=== PATIENT | female | born 1965 | race Caucasian/White ===

== ENCOUNTER 2021-04-10 16:18 | Emergency (ER) | payer OTHER ==
[2021-04-10 16:51] VITALS: BP 109/81
--- NOTE | 2021-04-10 17:43 | XRAY Report ---
PROCEDURE: Knee 4 View LT INDICATIONS: fall, knee pain TECHNIQUE: 4 views of the left knee(s) were acquired. COMPARISON: None. FINDINGS: Bones: No acute fractures or dislocations. No suspicious bony lesions. Tricompartmental degenerativ e changes of the left knee most pronounced in the patellofemoral compartment. Enthesophyte noted over the superior pole of the patella. Soft tissues: No joint effusion. No suspicious soft tissue calcifications. IMPRESSION: Left knee without acute fracture or dislocation. Tricompartmental degenerative changes of the left knee. If there is persistent clinical concern for a radiographically occult fracture, recommend immobilizat ion and repeat imaging in 10 to 14 days. Reviewed by: Shailesh Daugherty MD on 04/10/2021 5:42 PM PDT Approved by: Shailesh Daugherty MD on 04/10/2021 5:42 PM PDT Station ID: [id number]
[2021-04-10] MEDS ORDERED: IBUPROFEN 800 MG TABLET PO STA (18:02)
--- NOTE | 2021-04-10 18:03 | ED Physician Documentation ---
PD HPI LOWER EXT INJURY - Stated complaint Stated Complaint: LT LEG INJ - Chief complaint Chief Complaint: Trauma Ext - History obtained from History obtained from: Patient, Family - History of Present Illness PD HPI LOW EXT INJURY LOCATION: Left, Knee Type of injury: Fall, Twist Where injury occurred: Home Timing - onset: How many hours ago (2) Timing - duration: Hours (2) Pain level max: 6 Pain level now: 5 Improved by: Rest Worsened by: Moving, Palpating Associated symptoms: Swelling. No: Weakness, Numbness, Tingling Contributing factors: No: Anticoagulated, Prior ortho surgery, Prosthetic joint - Additional information Additional information: Patient is a 55-year-old female who presents to the emergency department after walking down stairs when she slipped and her left knee bent backwards behind her. Now has pain with walking. Worse with movement, better with rest. She states that she has injured this knee previously. Denies head, neck, back pain. Patient is here visiting. Review of Systems Constitutional: denies: Fever, Chills GI: denies: Vomiting Skin: denies: Rash Musculoskeletal: denies: Neck pain, Back pain Neurologic: denies: Headache, Head injury, LOC PD PAST MEDICAL HISTORY - Past Medical History Past Medical History: Yes Cardiovascular: Hypertension Respiratory: None Neuro: None Endocrine/Autoimmune: None GI: GERD [employer]: None : None HEENT: Chronic vision loss Psych: None Musculoskeletal: None Derm: None - Past Surgical History Past Surgical History: No - Allergies Allergies/Adverse Reactions: Allergies Allergy/AdvReac Type Severity Reaction Status Date / Time acetaminophen [From Percocet] Allergy Itching Verified 04/10/21 16:51 oxycodone [From Percocet] Allergy Itching Verified 04/10/21 16:51 - Social History Does the pt smoke?: No Smoking Status: Never smoker Does the pt drink ETOH?: No Does the pt have substance abuse?: No - Immunizations Immunizations are current?: Yes - POLST Patient has POLST: No PD ED PE NORMAL - Vitals Vital signs reviewed: Yes - General General: Alert and oriented X 3, No acute distress - HEENT HEENT: Moist mucous membranes - Neck Neck: Supple, no meningeal sign - Cardiac Cardiac: RRR - Respiratory Respiratory: No respiratory distress, Clear bilaterally - Derm Derm: Warm and dry - Extremities Extremities: Other (Mild prepatellar swelling of the left knee. Mild joint effusion. Limited range of motion secondary to pain. There are some tenderness along the medial joint line. ACL, MCL, PCL, LCL are intact. NVI) - Neuro Neuro: Alert and oriented X 3 - Psych Psych: Normal mood, Normal affect Results - Vitals Vitals: Vital Signs - 24 hr 04/10/21 16:48 Temperature 37.3 C Heart Rate 101 H Respiratory 16 Rate Blood Pressure 109/81 H O2 Saturation 95 Oxygen O2 Source Room air - Rads (name of study) L knee xray Radiology: Final report received, EMP read contemporaneously, See rad report (No acute abnormality) PD MEDICAL DECISION MAKING - ED course Complexity details: reviewed results, re-evaluated patient, considered differential, d/w patient, d/w family ED course: No acute findings on x-ray. Likely knee sprain. Possible meniscus injury? Placed in a articulating knee brace. Declines crutches. Declines pain medication for home. Neurovascularly intact. She will follow up with an orthopedist in 1 week when she returns home. Patient and family counseled regarding signs and symptoms for which I believe and urgent re-evaluation would be necessary. Patient with good understanding of and agreement to plan and is comfortable going home at this time This document was made in part using voice recognition software. While efforts are made to proofread this document, sound alike and grammatical errors may occur. Departure - Departure Disposition: 01 Home, Self Care Clinical Impression: Left knee sprain Qualifiers: Encounter type: initial encounter Involved ligament of knee: medial collateral ligament Qualified Code(s): S83.412A - Sprain of medial collateral ligament of left knee, initial encounter Condition: Good Instructions: ED Sprain Knee Follow-Up: Your,doctor in 1 week [Other] Comments: Wear the articulating knee brace to help add support to the knee while this heals. You may bear weight as tolerated. Follow-up with an orthopedist when you return home to [place] for repeat evaluation when the swelling has decreased. Return if you worsen. FINDINGS: Bones: No acute fractures or dislocations. No suspicious bony lesions. Tricompartmental degenerative changes of the left knee most pronounced in the patellofemoral compartment. Enthesophyte noted over the superior pole of the patella. Soft tissues: No joint effusion. No suspicious soft tissue calcifications. IMPRESSION: Left knee without acute fracture or dislocation. Tricompartmental degenerative changes of the left knee. Discharge Date/Time: 04/10/21 19:10
--- NOTE | 2021-04-11 13:37 | ED Physician Documentation ---
ED Addendum - Addendum Addendum: 04/11/21 13:34 Patient returns today requesting a walker and pain medication. We will provide this for her. Patient will follow up with her doctor for further care. This document was made in part using voice recognition software. While efforts are made to proofread this document, sound alike and grammatical errors may occur. Departure - Departure Disposition: 01 Home, Self Care Clinical Impression: Left knee sprain Qualifiers: Encounter type: initial encounter Involved ligament of knee: medial collateral ligament Qualified Code(s): S83.412A - Sprain of medial collateral ligament of left knee, initial encounter Condition: Good Instructions: ED Sprain Knee Follow-Up: Your,doctor in 1 week [Other] Prescriptions: traMADol [Ultram] 50 - 100 mg PO Q6H PRN #20 tablet PRN Reason: pain Comments: Wear the articulating knee brace to help add support to the knee while this heals. You may bear weight as tolerated. Follow-up with an orthopedist when you return home to [place] for repeat evaluation when the swelling has decreased. Return if you worsen. FINDINGS: Bones: No acute fractures or dislocations. No suspicious bony lesions. Tricompartmental degenerative changes of the left knee most pronounced in the patellofemoral compartment. Enthesophyte noted over the superior pole of the patella. Soft tissues: No joint effusion. No suspicious soft tissue calcifications. IMPRESSION: Left knee without acute fracture or dislocation. Tricompartmental degenerative changes of the left knee. I am prescribing a short course of narcotic pain medication for you. These are potentially dangerous and addictive medications that should be used carefully. These medications may constipate you. Take an [id number] stool softener (docusate) twice daily with plenty of water while taking these medications. If you go 24 hours without a bowel movement, take [id number] miralax, per package instructions. Do not drink or drive while taking these medications. If you received narcotic or sedating medications while in the emergency department, do not drive for 24 hours. Store this medication in a safe, secure place and out of reach of children. It is a violation of federal law to give or sell this medication to another person or to use in a manner other than prescribed. The ED will not refill narcotic prescriptions, including prescriptions lost or stolen. To dispose of unwanted medications: 1. [facility] at [address] in [place] has a medication drop box. They accept prescription medications (in pill form) Friday through Friday 9:00 a.m. to 5:00 p.m. 2. The [facility] accepts prescription medications (in pill form only) for disposal year round. Call for more information. 3. Contact the [facility] for the next [facility] sponsored prescription drug collection event. , [phone], or [phone]; Discharge Date/Time: 04/10/21 19:10
== END 2021-04-10 19:10 | disposition home or self-care (01) ==
LOC: ED 16:18
DX: S83.412A Sprain of medial collateral ligament of left knee, initial encounter (principal); W10.8XXA Fall (on) (from) other stairs and steps, initial encounter; Y93.01 Activity, walking, marching and hiking; Y92.008 Other place in unspecified non-institutional (private) residence as the place of occurrence of the external cause; M17.12 Unilateral primary osteoarthritis, left knee; I10 Essential (primary) hypertension
CPT/HCPCS: 73564; 99282; 99283; A9270